=== PATIENT | female | born 1975 | race Caucasian/White ===

== ENCOUNTER 2017-05-06 06:46 | Emergency (ER) | payer BC ==
[2017-05-06] MEDS ORDERED: hydrOXYzine HCl 50 MG/ML SDV IM ONE (07:30)
[2017-05-06] MEDS ORDERED: Ketorolac 60 MG/2 ML SDV IM ONE (07:33)
--- NOTE | 2017-05-06 07:42 | EDM.PDOC ---
ED HPI GENERAL MEDICAL PROBLEM - General Chief Complaint: Headache Stated Complaint: MIGRAINE Time Seen by Provider: 05/06/17 06:53 Source of Information: Reports: Patient, Family History Limitations: Reports: No Limitations - History of Present Illness INITIAL COMMENTS - FREE TEXT/NARRATIVE: 42 y.o.w.f with h/o migraine, came to the ed due to N/V and pain at her r temp area. She has photophobia as well. Pt takes Metformin but has no DM. She has hypoglycemia, "Metformin stabilizes her blood sugar". Pt requested IM meds only , no I.V, no PO meds. No Trauma, not the worst H/A ever but one of the worst. No other acute medical issues. Onset Date: 05/06/17 Onset Time: 03:00 Duration: Hour(s):, Constant Location: Reports: Head Quality: Reports: Ache Severity: Moderate Improves with: Reports: Medication, Rest Worsens with: Reports: Movement Context: Reports: Activity, Other (H/O migraine H/A) R sided headache Pain Score (Numeric/FACES): 10 - Related Data Allergies Allergy/AdvReac Type Severity Reaction Status Date / Time No Known Allergies Allergy Verified 05/06/17 07:07 Home Meds: Home Meds Escitalopram [Lexapro] 20 mg PO DAILY 02/28/15 [History] Levothyroxine [Synthroid] 75 mcg PO DAILY 02/28/15 [History] Multivitamin [Multi-Vitamin Daily] 1 tab PO DAILY 02/28/15 [History] Topiramate 100 mg PO BID 02/28/15 [History] metFORMIN [Glucophage] 500 mg PO BIDMEALS 02/28/15 [History] Ondansetron [Zofran Odt] 8 mg PO Q6H PRN #10 tab.rapdis 05/24/16 [Rx] Butalb/Acetaminophen/Caffeine [Guxamq-Jqfzdtlx-Lufw 50-325-40] 1 tab Q4H PRN [History] ClonazePAM [KlonoPIN] 0.5 mg TID PRN 05/06/17 [History] Estrogens, Conjugated [Premarin] 0.625 mg DAILY 05/06/17 [History] Rizatriptan Benzoate [Rizatriptan] 10 mg ASDIRECTED PRN MDD 3 05/06/17 [History] Venlafaxine HCl [Venlafaxine ER] 150 mg DAILY 05/06/17 [History] Past Medical History HEENT History: Reports: Impaired Vision 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 Hematologic History: Reports: Other (See Below) Other Hematologic History: post-op hemorrhage - Past Surgical History HEENT Surgical History: Reports: Oral Surgery GI Surgical History: Reports: Appendectomy, Bariatric Procedure, Cholecystectomy , Hernia Repair/Other Female Surgical History: Reports: Hysterectomy, Oophorectomy, Salpingo- Oophorectomy Social & Family History - Family History Family Medical History: Noncontributory - Tobacco Use Smoking Status *Q: Former Smoker Years of Tobacco use: 10 Used Tobacco, but Quit: Yes Month Tobacco Last Used: 2001 - Caffeine Use Caffeine Use: Reports: Coffee - Recreational Drug Use Recreational Drug Use: No ED ROS GENERAL - Review of Systems Review Of Systems: See Below Constitutional: Reports: No Symptoms HEENT: Reports: No Symptoms Respiratory: Reports: No Symptoms Cardiovascular: Reports: No Symptoms Endocrine: Reports: No Symptoms GI/Abdominal: Reports: Nausea : Reports: No Symptoms Musculoskeletal: Reports: No Symptoms Skin: Reports: No Symptoms Neurological: Reports: Headache Psychiatric: Reports: No Symptoms Hematologic/Lymphatic: Reports: No Symptoms Immunologic: Reports: No Symptoms - Physical Exam Exam: See Below Exam Limited By: No Limitations General Appearance: Alert, WD/WN, Mild Distress Eye Exam: Bilateral Eye: Normal Inspection Ears: Normal External Exam Nose: Normal Inspection, Normal Mucosa Throat/Mouth: Normal Inspection, Normal Lips Head Exam: Atraumatic, Normocephalic Neck: Normal Inspection, Supple, Non-Tender, Full Range of Motion Respiratory/Chest: No Respiratory Distress Cardiovascular: Normal Peripheral Pulses, Regular Rate, Rhythm, No Edema GI/Abdominal: Normal Bowel Sounds, Soft, Non-Tender (Female) Exam: Deferred Rectal (Female) Exam: Deferred Neuro Exam (Abbreviated): Alert, Oriented, CN II-XII Intact, Normal Cognition Back Exam: Normal Inspection, Full Range of Motion Extremities: Normal Inspection, Normal Range of Motion Psychiatric: Normal Affect, Normal Mood Skin Exam: Warm, Dry, Intact, Normal Color Course - Vital Signs Text/Narrative:: 42 y.o.w.f with h/o migraine, came to the ed deu to N/V and pain at her r temp area. She has photophobia as well. Pt takes Metformin but has no DM. She has hypoglycemia, "Metformin stabilizes her blood sugar". Pt requested IM meds only , no I.V, no PO meds. No Trauma, not the worst H/A ever but one of the worst. No other acute medical issues. PE: WNWD WF with Migraine with photophobia Impression:Migraine with photophobia Tx: Toradol, Vistaril. Pt refused imitrex initially, later on agreed to get it injected for migraine headache. Reexam: Improved, requested to be discharged Plan: D/C with instructions Last Recorded V/S: Last Vital Signs Temp 36.8 C 05/06/17 09:20 Pulse 99 05/06/17 09:20 Resp 18 05/06/17 09:20 BP 136/85 05/06/17 09:20 Pulse Ox 100 05/06/17 09:20 - Orders/Labs/Meds Meds: Medications Discontinued Medications Generic Name Dose Route Start Last Admin Trade Name Freq PRN Reason Stop Dose Admin Hydroxyzine HCl 50 mg 05/06/17 07:30 05/06/17 07:42 Vistaril IM 05/06/17 07:31 50 mg ONETIME ONE Administration Ketorolac Tromethamine 60 mg 05/06/17 07:33 05/06/17 07:39 Toradol IM 05/06/17 07:34 60 mg ONETIME ONE Administration Sumatriptan Succinate 6 mg 05/06/17 08:31 05/06/17 08:38 Imitrex SUBCUT 05/06/17 08:32 6 mg ONETIME ONE Administration Departure - Departure Time of Disposition: :17 Disposition: Home, Self-Care 01 Condition: Good Clinical Impression: Migraine Qualifiers: Migraine type: without aura Status migrainosus presence: without status migrainosus Intractability: not intractable Qualified Code(s): G43.009 - Migraine without aura, not intractable, without status migrainosus - Discharge Information Instructions: Migraine Headache, [id number] Referrals: Gifty Bowden G[employer] INSPECTOR [Primary Care Provider] - Forms: ED Department Discharge Additional Instructions: Please cont your meds, f/u, come back if your symptoms get worse acutely
[2017-05-06] MEDS ORDERED: SUMAtriptan 6 MG/0.5 ML SDV SUBCUT ONE (08:31)
[2017-05-06 09:27] VITALS: BP 136/85
== END 2017-05-06 09:20 | disposition home or self-care (01) ==
LOC: FB.ED 06:46
DX: G43.009 Migraine without aura, not intractable, without status migrainosus (principal); K21.9 Gastro-esophageal reflux disease without esophagitis; F41.9 Anxiety disorder, unspecified; F32.9 Major depressive disorder, single episode, unspecified; E03.9 Hypothyroidism, unspecified; Z90.89 Acquired absence of other organs; Z98.84 Bariatric surgery status; Z90.49 Acquired absence of other specified parts of digestive tract; Z90.710 Acquired absence of both cervix and uterus; Z79.84 Long term (current) use of oral hypoglycemic drugs; Z79.899 Other long term (current) drug therapy; Z87.891 Personal history of nicotine dependence
CPT/HCPCS: 96372; 99283; J1885; J3030; J3410

== ENCOUNTER 2017-07-29 22:49 | Inpatient (IN) | payer BC ==
[2017-07-29] MEDS ORDERED: Sodium Chloride 0.9% 1,000 ML IV ONE (22:51)
[2017-07-29] MEDS ORDERED: Thiamine 100 MG in Sodium Chloride 0.9% 100 ML IV STA (22:54)
--- NOTE | 2017-07-30 00:18 | EDM.PDOCBH ---
ED HPI GENERAL MEDICAL PROBLEM - General Chief Complaint: Drug or Alcohol Abuse Stated Complaint: OD Time Seen by Provider: 07/30/17 00:17 Source of Information: Reports: Patient, EMS, Family (SO) History Limitations: Reports: Altered Mental Status - History of Present Illness INITIAL COMMENTS - FREE TEXT/NARRATIVE: 42 y.o.w.sushant. came be EMS to the ed after she was found lethargic by her SO last a t about 1 pm> She told him she took 50..... Pills? and fell a sleep right away. She was drinking socially with friends in the past 2 days. Pt does not drin ETOH every day. Pt has a H/O depression and takes meds for that. Pt looked for empty bottles at home and did not find any. On arrival. pt had pinpoint pupils, reactive to light and acc. No trauma. Pt take Metformin as well. However , SO is not sure if she has DM. SO stated, pt is depressed but never a suicidal attempt. 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 No N/V/D or any other acute medical issues. At this time, it is [place] [address] Pulse 62 Temp 35.9 RR 15 Pulse ox 98% on RA Onset Date: 07/29/17 Onset Time: 09:45 Duration: Hour(s):, Getting Worse Location: Reports: Generalized Severity: Moderate Context: Reports: Other (fell suddenly asleep, Took pills ) - Related Data Allergies Allergy/AdvReac Type Severity Reaction Status Date / Time No Known Allergies Allergy Verified 07/30/17 00:32 Home Meds: Home Meds Escitalopram [Lexapro] 20 mg PO DAILY 02/28/15 [History] Levothyroxine [Synthroid] 75 mcg PO DAILY 02/28/15 [History] Multivitamin [Multi-Vitamin Daily] 1 tab PO DAILY 02/28/15 [History] Topiramate 100 mg PO BID 02/28/15 [History] metFORMIN [Glucophage] 500 mg PO BIDMEALS 02/28/15 [History] Ondansetron [Zofran Odt] 8 mg PO Q6H PRN #10 tab.rapdis 05/24/16 [Rx] Butalb/Acetaminophen/Caffeine [Ullzgf-Jofqvwfd-Royp 50-325-40] 1 tab Q4H PRN [History] ClonazePAM [KlonoPIN] 0.5 mg TID PRN 05/06/17 [History] Estrogens, Conjugated [Premarin] 0.625 mg DAILY 05/06/17 [History] Rizatriptan Benzoate [Rizatriptan] 10 mg ASDIRECTED PRN MDD 3 05/06/17 [History] Venlafaxine HCl [Venlafaxine ER] 150 mg DAILY 05/06/17 [History] Past Medical History HEENT History: Reports: Impaired Vision 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 Hematologic History: Reports: Other (See Below) Other Hematologic History: post-op hemorrhage - Infectious Disease History Infectious Disease History: Reports: Chicken Pox - Past Surgical History HEENT Surgical History: Reports: Oral Surgery GI Surgical History: Reports: Appendectomy, Bariatric Procedure, Cholecystectomy , Hernia Repair/Other Female Surgical History: Reports: Hysterectomy, Oophorectomy, Salpingo- Oophorectomy Social & Family History - Family History Family Medical History: Noncontributory - Tobacco Use Smoking Status *Q: Former Smoker Years of Tobacco use: 10 Used Tobacco, but Quit: Yes Month Tobacco Last Used: 2001 - Caffeine Use Caffeine Use: Reports: Coffee - Recreational Drug Use Recreational Drug Use: No ED ROS GENERAL - Review of Systems Review Of Systems: Unable To Obtain ED EXAM, BEHAVIORAL HEALTH - Physical Exam Exam: See Below Exam Limited By: Altered Mental Status General Appearance: Lethargic Eye Exam: Bilateral Eye: Abnormal Pupil (pinpoint), Normal Fundi Ears: Normal External Exam Nose: Normal Inspection Throat/Mouth: Normal Inspection Head: Atraumatic, Normocephalic Neck: Normal Inspection, Supple, Non-Tender, Full Range of Motion Respiratory/Chest: No Respiratory Distress, Lungs Clear, Normal Breath Sounds, No Accessory Muscle Use, Chest Non-Tender Cardiovascular: Normal Peripheral Pulses, Regular Rate, Rhythm, No Edema, No Gallop, No JVD, No Murmur, No Rub GI/Abdominal: Normal Bowel Sounds, Soft, Non-Tender, No Organomegaly, No Distention, No Abnormal Bruit (Female) Exam: Deferred Rectal (Female) Exam: Deferred Back Exam: Normal Inspection Extremities: Normal Inspection, Normal Range of Motion, Non-Tender, No Pedal Edema, Normal Capillary Refill Neurological: Inattentive, Opens Eyes to Commands, Slow Response to Commands Psychiatric: Depressed Mood Skin Exam: Warm, Dry, Intact, Normal color, No rash EKG INTERPRETATION EKG Date: 07/30/17 Time: 01:55 Rhythm: NSR Rate (Beats/Min): 63 [place]: Normal P-Wave: Present QRS: Normal ST-T: Normal QT: Normal Comparison: NA - No Prior EKG COURSE, BEHAVIORAL HEALTH COMP - Course Vital Signs: Last Vital Signs Temp 35.1 C L 07/30/17 00:48 Pulse 70 07/30/17 03:50 Resp 20 07/30/17 03:50 BP 123/78 07/30/17 03:50 Pulse Ox 99 07/30/17 03:50 42 y.o.w.f. came be EMS to the ed after she was found lethargic by her SO last a t about 1 pm> She told him she took 50..... Pills? and fell a sleep right away. She was drinking socially with friends in the past 2 days. Pt does not drin ETOH every day. Pt has a H/O depression and takes meds for that. Pt looked for empty bottles at home and did not find any. On arrival. pt had pinpoint pupils, reactive to light and acc. No trauma. Pt take Metformin as well. However , SO is not sure if she has DM. SO stated, pt is depressed but never a suicidal attempt. 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 No N/V/D or any other acute medical issues. At this time, it is not [place] [address] Pulse 62 Temp 35.9 RR 15 Pulse ox 98% on RA Pt may have OD'd om Metfromin PE: Lethargic Imaging: not indicated Labs: UDS neg. ETOH 0.03 Acetaminophen level was 69. ASA level was 1.7, Lactic acid was 0.8 WBC was 6.4 HGB was 10.6 and BUN was 22 Cr. was 0.9 were nl. ABG showed a pH of 7.38 pCO2 was 33 HCO2 19 pO2 98 BE -5.1 Impression: Depression/suicidal attempt, hypoglycemia (poss Metfromin OD), partially compensated rep. acidosis Tx: NS, D5 1/2 LR, 1.35 am consultation: Poison Control: Repeat Lactic acid and acetaminophen level in 4 hours after the last draw (00.05 am) admit for OBS for 24 Reexam: Improved Plan: admit to ICU Orders, Labs, Meds: Active Orders 24 hr Category Date Time Status Insert Urinary Catheter [OM.PC] Q24H Care 07/29/17 23:46 Ordered Dextrose 5%-0.45% NaCl [Dextrose 5%-1/2 NS] 1,000 ml Med 07/30/17 01:00 Active IV ASDIRECTED Sodium Chloride 0.9% [Saline Flush] Med 07/30/17 00:39 Active 10 ml FLUSH ASDIRECTED PRN Saline Lock Insert [OM.PC] Routine Oth 07/30/17 00:39 Ordered Medication Orders Dextrose/Sodium Chloride (Dextrose 5%-1/2 Ns) 1,000 mls @ 125 mls/hr IV ASDIRECTED YARIEL Last Admin: 07/30/17 00:59 Dose: 125 mls/hr Sodium Chloride (Saline Flush) 10 ml FLUSH ASDIRECTED PRN PRN Reason: Keep Vein Open Laboratory Tests 07/29/17 07/29/17 07/29/17 Range/Units 23:05 23:05 23:05 WBC 6.6 (4.5-12.0) X10-3/uL RBC 3.91 (3.23-5.20) x10(6)uL Hgb 10.7 L (11.5-15.5) g/dL Hct 32.7 (30.0-51.3) % MCV 83.6 (80-96) fL MCH 27.2 L (27.7-33.6) pg MCHC 32.6 (32.2-35.4) g/dL RDW 12.7 (11.5-15.5) % Plt Count 283 (125-369) X10(3)uL MPV 7.8 (7.4-10.4) fL Neut % (Auto) 54.3 (46-82) % Lymph % (Auto) 30.4 (13-37) % Falls % (Auto) 8.4 (4-12) % Eos % (Auto) 6 H (1.0-5.0) % Baso % (Auto) 1 (0-2) % Neut # (Auto) 3.5 (1.6-8.3) # Lymph # (Auto) 2.0 (0.6-5.0) # Falls # (Auto) 0.6 (0.0-1.3) # Eos # (Auto) 0.4 (0.0-0.8) # Baso # (Auto) 0.1 (0.0-0.2) # ABG pH (7.35-7.45) ABG pCO2 (35-45) mmHg ABG pO2 (83-108) mmHg ABG HCO3 (22-26) mmol/L ABG O2 Saturation (96-97) % ABG Base Excess (-2-2) Jaren Test O2 Delivery Device Sodium 142 (135-145) mmol/L Potassium 3.7 (3.5-5.3) mmol/L Chloride 108 (100-110) mmol/L Carbon Dioxide 25 (21-32) mmol/L BUN 22 H (7-18) mg/dL Creatinine 0.9 (0.55-1.02) mg/dL Est Cr Clr Drug Dosing TNP Estimated GFR (MDRD) > 60 (>60) BUN/Creatinine Ratio 24.4 H (9-20) Glucose 78 L (80-116) mg/dL Lactic Acid (0.4-2.2) mmol/L Calcium 8.6 (8.6-10.2) mg/dL Urine Color (YELLOW) Urine Appearance (CLEAR) Urine pH (5.0-6.5) Ur Specific [place] (1.010-1.025) Urine Protein (NEGATIVE) mg/dL Urine Glucose (UA) (NEGATIVE) mg/dL Urine Ketones (NEGATIVE) mg/dL Urine Occult Blood (NEGATIVE) Urine Nitrite (NEGATIVE) Urine Bilirubin (NEGATIVE) Urine Urobilinogen (NEGATIVE) mg/dL Ur Leukocyte Esterase (NEGATIVE) Urine RBC (0) Urine WBC (0) Ur Squamous Epith Cells (NS,R,O) Urine Bacteria (NS) Urine Mucus (NS) Salicylates (2.8-20.0) mg/dL Urine Opiates Screen (NEGATIVE) Ur Oxycodone Screen (NEGATIVE) Ur Propoxyphene Screen (NEGATIVE) Acetaminophen (10-30) ug/mL Ur Barbituates Screen (NEGATIVE) Ur Tricyclics Screen (NEGATIVE) Ur Phencyclidine Scrn (NEGATIVE) Ur Amphetamine Screen (NEGATIVE) Urine MDMA Screen (NEGATIVE) U Benzodiazepines Scrn (NEGATIVE) U Cocaine Metab Screen (NEGATIVE) U Marijuana (THC) Screen (NEGATIVE) Ethyl Alcohol < 0.03 (<0.03) % 07/29/17 07/29/17 07/30/17 Range/Units 23:53 23:53 00:05 WBC (4.5-12.0) X10-3/uL RBC (3.23-5.20) x10(6)uL Hgb (11.5-15.5) g/dL Hct (30.0-51.3) % MCV (80-96) fL MCH (27.7-33.6) pg MCHC (32.2-35.4) g/dL RDW (11.5-15.5) % Plt Count (125-369) X10(3)uL MPV (7.4-10.4) fL Neut % (Auto) (46-82) % Lymph % (Auto) (13-37) % Falls % (Auto) (4-12) % Eos % (Auto) (1.0-5.0) % Baso % (Auto) (0-2) % Neut # (Auto) (1.6-8.3) # Lymph # (Auto) (0.6-5.0) # Falls # (Auto) (0.0-1.3) # Eos # (Auto) (0.0-0.8) # Baso # (Auto) (0.0-0.2) # ABG pH (7.35-7.45) ABG pCO2 (35-45) mmHg ABG pO2 (83-108) mmHg ABG HCO3 (22-26) mmol/L ABG O2 Saturation (96-97) % ABG Base Excess (-2-2) Jaren Test O2 Delivery Device Sodium (135-145) mmol/L Potassium (3.5-5.3) mmol/L Chloride (100-110) mmol/L Carbon Dioxide (21-32) mmol/L BUN (7-18) mg/dL Creatinine (0.55-1.02) mg/dL Est Cr Clr Drug Dosing Estimated GFR (MDRD) (>60) BUN/Creatinine Ratio (9-20) Glucose (80-116) mg/dL Lactic Acid (0.4-2.2) mmol/L Calcium (8.6-10.2) mg/dL Urine Color Yellow (YELLOW) Urine Appearance Cloudy (CLEAR) Urine pH 5.0 (5.0-6.5) Ur Specific [place] 1.020 (1.010-1.025) Urine Protein Negative (NEGATIVE) mg/dL Urine Glucose (UA) Normal (NEGATIVE) mg/dL Urine Ketones Negative (NEGATIVE) mg/dL Urine Occult Blood Large H (NEGATIVE) Urine Nitrite Negative (NEGATIVE) Urine Bilirubin Negative (NEGATIVE) Urine Urobilinogen Normal (NEGATIVE) mg/dL Ur Leukocyte Esterase Negative (NEGATIVE) Urine RBC 5-10 (0) Urine WBC 0-5 (0) Ur Squamous Epith Cells Many H (NS,R,O) Urine Bacteria Many H (NS) Urine Mucus Many H (NS) Salicylates 1.7 L (2.8-20.0) mg/dL Urine Opiates Screen Negative (NEGATIVE) Ur Oxycodone Screen Negative (NEGATIVE) Ur Propoxyphene Screen Negative (NEGATIVE) Acetaminophen 68 H* (10-30) ug/mL Ur Barbituates Screen Negative (NEGATIVE) Ur Tricyclics Screen Negative (NEGATIVE) Ur Phencyclidine Scrn Negative (NEGATIVE) Ur Amphetamine Screen Negative (NEGATIVE) Urine MDMA Screen Negative (NEGATIVE) U Benzodiazepines Scrn Negative (NEGATIVE) U Cocaine Metab Screen Negative (NEGATIVE) U Marijuana (THC) Screen Negative (NEGATIVE) Ethyl Alcohol (<0.03) % 07/30/17 07/30/17 Range/Units 01:05 01:10 WBC (4.5-12.0) X10-3/uL RBC (3.23-5.20) x10(6)uL Hgb (11.5-15.5) g/dL Hct (30.0-51.3) % MCV (80-96) fL MCH (27.7-33.6) pg MCHC (32.2-35.4) g/dL RDW (11.5-15.5) % Plt Count (125-369) X10(3)uL MPV (7.4-10.4) fL Neut % (Auto) (46-82) % Lymph % (Auto) (13-37) % Falls % (Auto) (4-12) % Eos % (Auto) (1.0-5.0) % Baso % (Auto) (0-2) % Neut # (Auto) (1.6-8.3) # Lymph # (Auto) (0.6-5.0) # Falls # (Auto) (0.0-1.3) # Eos # (Auto) (0.0-0.8) # Baso # (Auto) (0.0-0.2) # ABG pH 7.38 (7.35-7.45) ABG pCO2 33 L (35-45) mmHg ABG pO2 99 (83-108) mmHg ABG HCO3 19 L (22-26) mmol/L ABG O2 Saturation 98 H (96-97) % ABG Base Excess -5.1 L (-2-2) Jaren Test Passed O2 Delivery Device Room air Sodium (135-145) mmol/L Potassium (3.5-5.3) mmol/L Chloride (100-110) mmol/L Carbon Dioxide (21-32) mmol/L BUN (7-18) mg/dL Creatinine (0.55-1.02) mg/dL Est Cr Clr Drug Dosing Estimated GFR (MDRD) (>60) BUN/Creatinine Ratio (9-20) Glucose (80-116) mg/dL Lactic Acid 0.8 (0.4-2.2) mmol/L Calcium (8.6-10.2) mg/dL Urine Color (YELLOW) Urine Appearance (CLEAR) Urine pH (5.0-6.5) Ur Specific [place] (1.010-1.025) Urine Protein (NEGATIVE) mg/dL Urine Glucose (UA) (NEGATIVE) mg/dL Urine Ketones (NEGATIVE) mg/dL Urine Occult Blood (NEGATIVE) Urine Nitrite (NEGATIVE) Urine Bilirubin (NEGATIVE) Urine Urobilinogen (NEGATIVE) mg/dL Ur Leukocyte Esterase (NEGATIVE) Urine RBC (0) Urine WBC (0) Ur Squamous Epith Cells (NS,R,O) Urine Bacteria (NS) Urine Mucus (NS) Salicylates (2.8-20.0) mg/dL Urine Opiates Screen (NEGATIVE) Ur Oxycodone Screen (NEGATIVE) Ur Propoxyphene Screen (NEGATIVE) Acetaminophen (10-30) ug/mL Ur Barbituates Screen (NEGATIVE) Ur Tricyclics Screen (NEGATIVE) Ur Phencyclidine Scrn (NEGATIVE) Ur Amphetamine Screen (NEGATIVE) Urine MDMA Screen (NEGATIVE) U Benzodiazepines Scrn (NEGATIVE) U Cocaine Metab Screen (NEGATIVE) U Marijuana (THC) Screen (NEGATIVE) Ethyl Alcohol (<0.03) % Medications Generic Name Dose Route Start Last Admin Trade Name Freq PRN Reason Stop Dose Admin Dextrose/Sodium Chloride 1,000 mls @ 125 mls/hr 07/30/17 01:00 07/30/17 00:59 Dextrose 5%-1/2 Ns IV 125 mls/hr ASDIRECTED YARIEL Administration Sodium Chloride 10 ml 07/30/17 00:39 Saline Flush FLUSH ASDIRECTED PRN Keep Vein Open Discontinued Medications Generic Name Dose Route Start Last Admin Trade Name Freq PRN Reason Stop Dose Admin Dextrose/Water 25 ml 07/30/17 00:38 07/30/17 00:41 Dextrose 50% In Water IVPUSH 07/30/17 00:39 25 ml ONETIME ONE Administration Sodium Chloride 1,000 mls @ 999 mls/hr 07/29/17 22:51 07/29/17 23:00 Normal Saline IV 07/29/17 23:51 999 mls/hr .BOLUS ONE Administration Thiamine HCl 100 mg/ Sodium 101 mls @ 202 mls/hr 07/29/17 22:54 07/29/17 23: 26 Chloride IV 07/29/17 22:55 202 mls/hr ONETIME STA Administration Departure - Departure Time of Disposition: 01:00 Disposition: Admitted As Inpatient 64 Condition: Fair Clinical Impression: Mental status change Qualifiers: Altered mental status type: somnolence Qualified Code(s): R40.0 - Somnolence - Discharge Information - My Orders Last 24 Hours: My Active Orders 07/29/17 23:46 Insert Urinary Catheter [OM.PC] Q24H 07/30/17 00:39 Sodium Chloride 0.9% [Saline Flush] 10 ml FLUSH ASDIRECTED PRN Saline Lock Insert [OM.PC] Routine 07/30/17 01:00 Dextrose 5%-0.45% NaCl [Dextrose 5%-1/2 NS] 1,000 ml IV ASDIRECTED - Assessment/Plan Last 24 Hours: My Active Orders 07/29/17 23:46 Insert Urinary Catheter [OM.PC] Q24H 07/30/17 00:39 Sodium Chloride 0.9% [Saline Flush] 10 ml FLUSH ASDIRECTED PRN Saline Lock Insert [OM.PC] Routine 07/30/17 01:00 Dextrose 5%-0.45% NaCl [Dextrose 5%-1/2 NS] 1,000 ml IV ASDIRECTED
[2017-07-30] MEDS ORDERED: 50% Dextrose in Water 50 ML Syringe IVPUSH ONE (00:38)
[2017-07-30] MEDS: Dextrose 5%-0.45% NaCl 1,000 ML IV SCH ×3 (00:59→17:17)
--- NOTE | 2017-07-30 11:45 | CT ---
INDICATION: Unresponsive. No history of trauma. CT HEAD WITHOUT CONTRAST: Serial contiguous 2.5 and 5-mm sections were obtained through the brain without contrast, 07/30/2017. No comparison study was available. Total Exam DLP = 949.36 mGy-cm. A small retention cyst is noted in the left maxillary antrum. Thickening of the linings of a few of the right-sided posterior ethmoidal air cells is noted. Paranasal sinuses were otherwise well aerated, as were the mastoid air cells. No definite cranial abnormality was identified. No shift of midline structures, ventricular abnormalities, or other abnormal areas of density were identified. There is some decreased density in the basal ganglia bilaterally, which may be on the basis of vascular structures. The possibility of lacunar infarcts is difficult to entirely exclude, however. Sigmoid sinuses are somewhat asymmetrical, the right being more prominent than the left. No bone erosion is suggested in that area. No bleeding site or hematoma was seen. IMPRESSION: 1. No definite acute intracranial abnormality. 2. Question the possibility of lacunar infarcts bilaterally at the posterior/ inferior basal ganglia. 3. If symptoms persist, MRI may be helpful for further evaluation. [id number]
--- NOTE | 2017-07-30 18:50 | HP ---
ADMISSION DATE: 07/30/2017 HISTORY OF PRESENT ILLNESS: Erin Boyle is a 42-year-old, female, who was admitted to [facility] to the ER. History is obtained at this time by her . She had a busy weekend, a couple nights of evenings out, Sunday night evening with her , Sunday evening with friends. She was late coming in after 2:00 a.m., both mornings. 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 There had been some discussion in the past of some suicidal ideation. She went to bed about 9 o'clock last evening, without complaints or concern, went to bed; after 10, she was unarousable, garbled speech, was difficult. There were some concerns about "taking 15 or 50 pills," unable to assist her to the hospital, was brought by ambulance for intervention and care. In the emergency room, she was found to be obtunded, unresponsive. Vital signs were stable, appropriate diagnostic studies were performed including urine drug screen, all negative except for moderately elevated Tylenol. Tylenol PM may have been in the discussion. MEDICATIONS: On admission include: 1. Fioricet p.r.n. headaches. 2. Clonazepam 0.5 mg t.i.d. 3. Escitalopram 20 mg one p.o. daily. 4. Premarin 0.625 one p.o. daily. 5. Levothyroxine 88 mcg one p.o. daily. 6. Metformin 500 mg b.i.d. 7. Multivitamin one daily, nutrition. 8. Zofran 8 mg q.6 hours p.r.n. nausea. 9. Rizatriptan 10 mg p.r.n. for headaches. 10.Topamax 100 mg b.i.d. 11.Effexor ER 150 one daily. ALLERGIES: No known allergies. PAST MEDICAL HISTORY: Significant for previous hysterectomy, oophorectomy, abdominal hernia, previous obesity surgery, and cholecystectomy by report. Chronic illnesses include anxiety, hypothyroidism, mood disorder, and migraines. No other operative procedures, hospitalizations, unusual childhood diseases, major injuries, or fractures. SOCIAL HISTORY: [place] resident. Lives with of 40, he is from [place]. 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 Three children, one daughter, two sons. Nonsmoker. No alcohol consumption. No illicit drug use. FAMILY HISTORY: Noncontributory. REVIEW OF SYSTEMS: Unable to obtain review of systems due to clinical presentation. OBJECTIVE: VITAL SIGNS: 36.4, 62, 143/80, 127/77, 14 is respiration, 99% on room air. GENERAL: Minimally responsive. VITAL SIGNS: Stable. No complicating issues. HEENT: Fundi benign. Pupils reactive, bright tympanic membranes, clear nasal discharge. Mouth and oropharynx clear. Good gag reflex. NECK: Benign. CHEST: Clear in all lung [place]. HEART: Regular without ectopy or murmur. ABDOMEN: Benign, well-healed surgical scars. PELVIC AND RECTAL: Deferred. EXTREMITIES: Well perfused. Decreased motor tone. LABORATORY STUDIES: CBC revealed a white count 6900, hemoglobin 10.7. Normal blood gases, 7.38 pH. Electrolytes satisfactory. Glucose 78. Urine unremarkable. ASSESSMENT: Unresponsive, obtunded, clinically stable, origin undetermined secondary diagnosis, and depression, anxiety, mood disorder, and suicidal consideration. PLAN: Staff had spoken to Poison Control, observation only. Close observation. Intervention and care. ADDENDUM: A CT was performed, no signs of intracranial abnormality, increasingly more responsive. She was asked to void and stool accordingly. Again spoke to Poison Control. Tylenol PM, Benadryl long acting fat-soluble, maybe a 24-hour window. Clonazepam may not be screened routinely on urine drug screen, further tests as appropriate. /[id number] /JONATHAN
[2017-07-31] MEDS: Dextrose 5%-0.45% NaCl 1,000 ML IV SCH (01:22)
[2017-07-31] MEDS: Sodium Chloride 0.9% 10 ML Syringe FLUSH PRN (11:30)
--- NOTE | 2017-07-31 15:45 | PN ---
DATE SEEN: 07/31/2017 SUBJECTIVE: Kaitlyn Boyle is a 42-year-old female, admitted on Sunday evening with a profound episode of obtundation and lethargy. Urine drug screen was negative. Medications under consideration, clonazepam or clonidine, often missed by Poison Control's observation on drug screen and, of course, may have been moderate to high doses of Benadryl. Making good progress. More awake and more alert. Up to void on the stool, a little bit of intake of fluids. No new outstanding laboratory studies. CT scan of the head was normal by report. OBJECTIVE: VITAL SIGNS: Stable and documented. CHEST: Clear. HEART: Regular. ABDOMEN: Benign. ASSESSMENT: Acute episode of marked decreased level of consciousness; complicated medications under consideration, clonazepam versus Benadryl, likely the Benadryl. PLAN: No other intervention and no antidotes in place. We will advance diet, close observation, discontinue fluids, teleconference with Psychiatry upcoming and planned. /[id number] JAYE/JONATHAN
[2017-07-31] MEDS: Ciprofloxacin 250 MG Tab PO SCH ×2 (18:58→20:16)
[2017-08-01] MEDS ORDERED: Ketorolac 30 MG/ML SDV IM ONE (01:30)
[2017-08-01] MEDS: Ciprofloxacin 250 MG Tab PO SCH ×2 (08:27→19:17)
[2017-08-01] MEDS ORDERED: Ketorolac 30 MG/ML SDV IM PRN (09:54)
[2017-08-01] MEDS: Ketorolac 30 MG/ML SDV IVPUSH PRN ×2 (10:23→17:51)
[2017-08-01] MEDS ORDERED: Levothyroxine 75 MCG Tab PO SCH (11:45)
[2017-08-01] MEDS ORDERED: Levothyroxine 88 MCG Tab PO SCH (11:45)
[2017-08-01] MEDS ORDERED: Venlafaxine 150 MG Cap.ER PO SCH (11:45)
--- NOTE | 2017-08-01 11:58 | PN ---
DATE SEEN: 08/01/2017 SUBJECTIVE: Erin Boyle is a 42-year-old female, admitted with apparent medication overdose planned. Exact circumstances unknown, please see the previous notes. A bit more wakeful, a bit more alert. Had an acute episode of pain over the left SI joint occurred tonight, further review no trauma or injury. Otherwise, has been well. Psychiatry phone teleconference visit planned today. Medications; reviewed and appropriate. In the past have included Effexor and clonazepam. We will reinstitute those medications today now that she is awake and alert. In a timely fashion. DISCHARGE PLAN: Later today, likely. /[id number] JAYE/JONATHAN
[2017-08-01] MEDS: Topiramate 50 MG Tab PO SCH ×2 (13:08→19:16)
[2017-08-01 16:55] VITALS: BP 150/83
[2017-08-01] MEDS: Sodium Chloride 0.9% 10 ML Syringe FLUSH PRN ×2 (17:51→17:54)
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
--- NOTE | 2017-08-02 03:12 | DISCH ---
DISCHARGE DATE: 08/01/2017 HOSPITAL COURSE: Erin Boyle is a 42-year-old female, admitted on Sunday evening with acute confusional state, lethargy, and obtunded state. Etiology uncertain, concerns about Klonopin and Benadryl. Physiologically stable. No complicating issues. Vital signs are stable. Laboratory studies are satisfactory. Blood alcohol was nil and only negligible in nature, drug screen returned no problematic, illicit, or prescription drugs. Talks with Poison Control suggested that Klonopin may often be a false negative. Treatment rather obtunded during her initial 2-day hospital stay, awake, arousable after void, limited intake. As hospital stay evolved, she became more alert, awake, and appropriate. Ambulatory skills were moderately limited on the day of discharge, by the time discharge was doing well. I spoke with the staff at [facility] in [place], after discussion with Dr. Harvey of Psychiatry for inpatient stay. The patient is in agreement to go voluntarily. No complicating issues. Urine culture revealed gram-negative jj, probably E coli, sensitivity pending. We will report that accordingly. We discharged her home on Cipro for an appropriate length of time. DISPOSITION: At the time of discharge, she is awake, alert, appropriate, and comfortable with the decision upcoming. To be transferred by family in a guarded position to [facility]. SURGICAL PROCEDURES: None. CONSULTATION: Dr. Harvey, Psychiatry. /[id number] /JONATHAN
== END 2017-08-01 19:30 | DRG 812 ==
LOC: FB.ED 22:49 → FB.ICU 07-30 01:53
PROVIDERS: ADMIT Family Medicine; ATTEND Family Medicine
DX: T50.902A Poisoning by unspecified drugs, medicaments and biological substances, intentional self-harm, initial encounter (principal); R41.0 Disorientation, unspecified; Y92.009 Unspecified place in unspecified non-institutional (private) residence as the place of occurrence of the external cause; R40.0 Somnolence; E87.2 Acidosis; E16.2 Hypoglycemia, unspecified; E03.9 Hypothyroidism, unspecified; F32.9 Major depressive disorder, single episode, unspecified; F41.9 Anxiety disorder, unspecified; G43.909 Migraine, unspecified, not intractable, without status migrainosus; Z98.84 Bariatric surgery status; Z87.891 Personal history of nicotine dependence; R82.79 Other abnormal findings on microbiological examination of urine
CPT/HCPCS: 36415; 36600; 70450; 80048; 80305; 81001; 82803; 82962; 83605; 85025; 87086; 87088; 87186; 93005; 96361; 96365; 96375; 99285; A9270-GY; G0425; G0480; J1885; J3411; J7030; J7040; J7050

== ENCOUNTER 2018-04-28 19:37 | Emergency (ER) | payer BC, OTHER ==
[2018-04-28] MEDS ORDERED: Sodium Chloride 0.9% 1,000 ML IV ONE (19:46)
[2018-04-28] MEDS ORDERED: Sodium Chloride 0.9% 10 ML Syringe FLUSH PRN (19:46)
--- NOTE | 2018-04-28 19:53 | EDM.PDOCBH ---
ED HPI GENERAL MEDICAL PROBLEM - General Chief Complaint: Drug or Alcohol Abuse Stated Complaint: OD Time Seen by Provider: 04/28/18 19:49 Source of Information: Reports: Patient, Family History Limitations: Reports: Altered Mental Status - History of Present Illness INITIAL COMMENTS - FREE TEXT/NARRATIVE: Admits to ingesting 20 Tylenol PMs @20 hours ago, patient verbalized to her friends that she ingested the medication in an attempt to harm herself. She does have a prior history of suicide attempt. Patient has been groggy all day, but more so in the last hour. Has been vomiting. Onset Date: 04/28/18 Onset Time: 00:00 Severity: Moderate - Related Data Allergies Allergy/AdvReac Type Severity Reaction Status Date / Time No Known Allergies Allergy Verified 07/30/17 00:32 Home Meds: Home Meds Levothyroxine [Synthroid] 75 mcg PO DAILY 02/28/15 [History] Topiramate 100 mg PO BID 02/28/15 [History] metFORMIN [Glucophage] 500 mg PO BIDMEALS 02/28/15 [History] Ondansetron [Zofran Odt] 8 mg PO Q6H PRN #10 tab.rapdis 05/24/16 [Rx] Butalb/Acetaminophen/Caffeine [Lemspr-Xmfhykmn-Gtsh 50-325-40] 1 tab Q4H PRN [History] ClonazePAM [KlonoPIN] 0.5 mg TID PRN 05/06/17 [History] Estrogens, Conjugated [Premarin] 0.625 mg DAILY 05/06/17 [History] Rizatriptan Benzoate [Rizatriptan] 10 mg ASDIRECTED PRN MDD 3 05/06/17 [History] Venlafaxine HCl [Venlafaxine ER] 150 mg DAILY 05/06/17 [History] Ciprofloxacin [Ciprofloxacin HCl] 250 mg PO BID tablet 08/01/17 [Rx] Past Medical History HEENT History: Reports: Impaired Vision Gastrointestinal History: Reports: GERD GUIDANCE CONSULTANT History: Reports: Dysfunctional Uterine Bleeding, , Spontaneous Musculoskeletal History: Reports: Fracture Other Musculoskeletal History: hx fx L ankle & foot Neurological History: Reports: Migraines Psychiatric History: Reports: Anxiety, Depression, Suicide Attempt, Other (See Below) (bulemia) Endocrine/Metabolic History: Reports: Hypothyroidism Other Endocrine/Metabolic History: Denies being diabetic, states is on Metformin for weight loss. Hematologic History: Reports: Other (See Below) Other Hematologic History: post-op hemorrhage - Infectious Disease History Infectious Disease History: Reports: Chicken Pox - Past Surgical History HEENT Surgical History: Reports: Oral Surgery GI Surgical History: Reports: Appendectomy, Bariatric Procedure, Cholecystectomy , Hernia Repair/Other Female Surgical History: Reports: Hysterectomy, Oophorectomy, Salpingo- Oophorectomy Social & Family History - Family History Family Medical History: Noncontributory - Caffeine Use Caffeine Use: Reports: Coffee, Soda - Alcohol Use Alcohol Use History: Yes Alcohol Use in Last Twelve Months: Yes Alcohol Use Comment: Consumed alcohol last night ED ROS GENERAL - Review of Systems Review Of Systems: Unable To Obtain ED EXAM, BEHAVIORAL HEALTH - Physical Exam Exam: See Below Exam Limited By: Altered Mental Status General Appearance: Alert, Lethargic Eye Exam: Bilateral Eye: EOMI, PERRL Ears: Normal External Exam Nose: Normal Inspection Throat/Mouth: No Airway Compromise Head: Atraumatic, Normocephalic Neck: Supple Respiratory/Chest: No Respiratory Distress, Lungs Clear, Normal Breath Sounds Cardiovascular: Regular Rate, Rhythm, No Gallop, No Murmur GI/Abdominal: Soft, Non-Tender Extremities: Normal Range of Motion Neurological: Disoriented to Person, Opens Eyes to Commands, Slow Response to Commands, Other (GCS 12) Psychiatric: Flat Affect, Poor Eye Contact, Suicidal Thoughts Skin Exam: Warm, Dry, Intact EKG INTERPRETATION EKG Date: 04/28/18 Time: 20:04 Rhythm: NSR Rate (Beats/Min): 83 [place]: Normal P-Wave: Present QRS: Normal (92) ST-T: Normal QT: Normal (477) COURSE, BEHAVIORAL HEALTH COMP - Course Vital Signs: Last Vital Signs Temp 36.6 C 04/28/18 19:37 Pulse Resp 18 04/28/18 20:51 BP 174/93 H 04/28/18 20:51 Pulse Ox 100 04/28/18 20:51 Orders, Labs, Meds: Active Orders 24 hr Category Date Time Status EKG Documentation Completion [RC] ASDIRECTED Care 04/28/18 19:44 Active Martinez Catheter Insertion [Insert Urinary Catheter] [OM. Care 04/28/18 19:45 Ordered PC] Q24H Urinary Catheter Assessment [RC] QSHIFT Care 04/28/18 19:44 Active Chest 1V Frontal [CR] Stat Exams 04/28/18 19:44 Taken Head wo Cont [CT] Stat Exams 04/28/18 19:45 Taken Acetylcysteine [Acetadote 20%] 10,200 mg Med 04/28/18 22:00 Active Sodium Chloride 0.45% 200 ml IV ONETIME Sodium Chloride 0.9% [Normal Saline] 1,000 ml Med 04/28/18 21:00 Active IV ASDIRECTED Sodium Chloride 0.9% [Saline Flush] Med 04/28/18 19:46 Active 10 ml FLUSH ASDIRECTED PRN Saline Lock Insert [OM.PC] Routine Oth 04/28/18 19:46 Ordered EKG 12 Lead [EK] Stat Ther 04/28/18 19:44 Ordered Medication Orders Sodium Chloride (Normal Saline) 1,000 mls @ 200 mls/hr IV ASDIRECTED YARIEL Last Admin: 04/28/18 20:56 Dose: 200 mls/hr Acetylcysteine 10,200 mg/ (Sodium Chloride) 251 mls @ 251 mls/hr IV ONETIME ONE Stop: 04/28/18 22:59 Sodium Chloride (Saline Flush) 10 ml FLUSH ASDIRECTED PRN PRN Reason: Keep Vein Open Last Admin: 04/28/18 19:55 Dose: 10 ml Laboratory Tests 04/28/18 04/28/18 04/28/18 Range/Units 19:55 19:55 19:55 WBC 7.0 (4.5-12.0) X10-3/uL RBC 4.61 (3.23-5.20) x10(6)uL Hgb 11.4 L (11.5-15.5) g/dL Hct 35.5 (30.0-51.3) % MCV 77.0 L (80-96) fL MCH 24.8 L (27.7-33.6) pg MCHC 32.1 L (32.2-35.4) g/dL RDW 14.6 (11.5-15.5) % Plt Count 364 (125-369) X10(3)uL MPV 8.1 (7.4-10.4) fL Neut % (Auto) 65.9 (46-82) % Lymph % (Auto) 25.3 (13-37) % [place] % (Auto) 8.3 (4-12) % Eos % (Auto) 0 L (1.0-5.0) % Baso % (Auto) 0 (0-2) % Neut # (Auto) 4.6 (1.6-8.3) # Lymph # (Auto) 1.8 (0.6-5.0) # [place] # (Auto) 0.6 (0.0-1.3) # Eos # (Auto) 0.0 (0.0-0.8) # Baso # (Auto) 0.0 (0.0-0.2) # PT 10.3 (8.7-11.1) INR 1.06 (0.89-1.13) Sodium 138 (135-145) mmol/L Potassium 3.5 (3.5-5.3) mmol/L Chloride 102 D (100-110) mmol/L Carbon Dioxide 25 (21-32) mmol/L BUN 18 (7-18) mg/dL Creatinine 1.0 (0.55-1.02) mg/dL Est Cr Clr Drug Dosing TNP Estimated GFR (MDRD) 60 (>60) BUN/Creatinine Ratio 18.0 (9-20) Glucose 111 (80-116) mg/dL Calcium 9.1 (8.6-10.2) mg/dL Total Bilirubin 0.4 (0.1-1.3) mg/dL AST 26 H (5-25) IU/L ALT 29 (12-36) U/L Alkaline Phosphatase 71 (56-112) IU/L Total Protein 7.1 (6.0-8.0) g/dL Albumin 3.8 (3.5-5.2) g/dL Globulin 3.3 g/dL Albumin/Globulin Ratio 1.2 TSH, Ultra Sensitive (0.36-3.74) IU/mL Urine Color (YELLOW) Urine Appearance (CLEAR) Urine pH (5.0-6.5) Ur Specific [place] (1.010-1.025) Urine Protein (NEGATIVE) mg/dL Urine Glucose (UA) (NEGATIVE) mg/dL Urine Ketones (NEGATIVE) mg/dL Urine Occult Blood (NEGATIVE) Urine Nitrite (NEGATIVE) Urine Bilirubin (NEGATIVE) Urine Urobilinogen (NEGATIVE) mg/dL Ur Leukocyte Esterase (NEGATIVE) Urine RBC (0) Urine WBC (0) Ur Squamous Epith Cells (NS,R,O) Urine Bacteria (NS) Urine HCG, Qual (NEGATIVE) Salicylates (2.8-20.0) mg/dL Urine Opiates Screen (NEGATIVE) Ur Oxycodone Screen (NEGATIVE) Ur Propoxyphene Screen (NEGATIVE) Acetaminophen (10-30) ug/mL Ur Barbituates Screen (NEGATIVE) Ur Tricyclics Screen (NEGATIVE) Ur Phencyclidine Scrn (NEGATIVE) Ur Amphetamine Screen (NEGATIVE) Urine MDMA Screen (NEGATIVE) U Benzodiazepines Scrn (NEGATIVE) U Cocaine Metab Screen (NEGATIVE) U Marijuana (THC) Screen (NEGATIVE) Ethyl Alcohol (<0.03) % 04/28/18 04/28/18 04/28/18 Range/Units 19:55 19:55 19:55 WBC (4.5-12.0) X10-3/uL RBC (3.23-5.20) x10(6)uL Hgb (11.5-15.5) g/dL Hct (30.0-51.3) % MCV (80-96) fL MCH (27.7-33.6) pg MCHC (32.2-35.4) g/dL RDW (11.5-15.5) % Plt Count (125-369) X10(3)uL MPV (7.4-10.4) fL Neut % (Auto) (46-82) % Lymph % (Auto) (13-37) % [place] % (Auto) (4-12) % Eos % (Auto) (1.0-5.0) % Baso % (Auto) (0-2) % Neut # (Auto) (1.6-8.3) # Lymph # (Auto) (0.6-5.0) # [place] # (Auto) (0.0-1.3) # Eos # (Auto) (0.0-0.8) # Baso # (Auto) (0.0-0.2) # PT (8.7-11.1) INR (0.89-1.13) Sodium (135-145) mmol/L Potassium (3.5-5.3) mmol/L Chloride (100-110) mmol/L Carbon Dioxide (21-32) mmol/L BUN (7-18) mg/dL Creatinine (0.55-1.02) mg/dL Est Cr Clr Drug Dosing Estimated GFR (MDRD) (>60) BUN/Creatinine Ratio (9-20) Glucose (80-116) mg/dL Calcium (8.6-10.2) mg/dL Total Bilirubin (0.1-1.3) mg/dL AST (5-25) IU/L ALT (12-36) U/L Alkaline Phosphatase (56-112) IU/L Total Protein (6.0-8.0) g/dL Albumin (3.5-5.2) g/dL Globulin g/dL Albumin/Globulin Ratio TSH, Ultra Sensitive 1.51 (0.36-3.74) IU/mL Urine Color (YELLOW) Urine Appearance (CLEAR) Urine pH (5.0-6.5) Ur Specific [place] (1.010-1.025) Urine Protein (NEGATIVE) mg/dL Urine Glucose (UA) (NEGATIVE) mg/dL Urine Ketones (NEGATIVE) mg/dL Urine Occult Blood (NEGATIVE) Urine Nitrite (NEGATIVE) Urine Bilirubin (NEGATIVE) Urine Urobilinogen (NEGATIVE) mg/dL Ur Leukocyte Esterase (NEGATIVE) Urine RBC (0) Urine WBC (0) Ur Squamous Epith Cells (NS,R,O) Urine Bacteria (NS) Urine HCG, Qual (NEGATIVE) Salicylates 1.3 L (2.8-20.0) mg/dL Urine Opiates Screen (NEGATIVE) Ur Oxycodone Screen (NEGATIVE) Ur Propoxyphene Screen (NEGATIVE) Acetaminophen 12 (10-30) ug/mL Ur Barbituates Screen (NEGATIVE) Ur Tricyclics Screen (NEGATIVE) Ur Phencyclidine Scrn (NEGATIVE) Ur Amphetamine Screen (NEGATIVE) Urine MDMA Screen (NEGATIVE) U Benzodiazepines Scrn (NEGATIVE) U Cocaine Metab Screen (NEGATIVE) U Marijuana (THC) Screen (NEGATIVE) Ethyl Alcohol < 0.03 (<0.03) % 04/28/18 04/28/18 04/28/18 Range/Units 20:20 20:30 20:30 WBC (4.5-12.0) X10-3/uL RBC (3.23-5.20) x10(6)uL Hgb (11.5-15.5) g/dL Hct (30.0-51.3) % MCV (80-96) fL MCH (27.7-33.6) pg MCHC (32.2-35.4) g/dL RDW (11.5-15.5) % Plt Count (125-369) X10(3)uL MPV (7.4-10.4) fL Neut % (Auto) (46-82) % Lymph % (Auto) (13-37) % [place] % (Auto) (4-12) % Eos % (Auto) (1.0-5.0) % Baso % (Auto) (0-2) % Neut # (Auto) (1.6-8.3) # Lymph # (Auto) (0.6-5.0) # [place] # (Auto) (0.0-1.3) # Eos # (Auto) (0.0-0.8) # Baso # (Auto) (0.0-0.2) # PT (8.7-11.1) INR (0.89-1.13) Sodium (135-145) mmol/L Potassium (3.5-5.3) mmol/L Chloride (100-110) mmol/L Carbon Dioxide (21-32) mmol/L BUN (7-18) mg/dL Creatinine (0.55-1.02) mg/dL Est Cr Clr Drug Dosing Estimated GFR (MDRD) (>60) BUN/Creatinine Ratio (9-20) Glucose (80-116) mg/dL Calcium (8.6-10.2) mg/dL Total Bilirubin (0.1-1.3) mg/dL AST (5-25) IU/L ALT (12-36) U/L Alkaline Phosphatase (56-112) IU/L Total Protein (6.0-8.0) g/dL Albumin (3.5-5.2) g/dL Globulin g/dL Albumin/Globulin Ratio TSH, Ultra Sensitive (0.36-3.74) IU/mL Urine Color Yellow (YELLOW) Urine Appearance Clear (CLEAR) Urine pH 7.0 H (5.0-6.5) Ur Specific [place] 1.005 L (1.010-1.025) Urine Protein Negative (NEGATIVE) mg/dL Urine Glucose (UA) Normal (NEGATIVE) mg/dL Urine Ketones Negative (NEGATIVE) mg/dL Urine Occult Blood Negative (NEGATIVE) Urine Nitrite Negative (NEGATIVE) Urine Bilirubin Negative (NEGATIVE) Urine Urobilinogen Normal (NEGATIVE) mg/dL Ur Leukocyte Esterase Negative (NEGATIVE) Urine RBC 0-5 (0) Urine WBC 0-5 (0) Ur Squamous Epith Cells Moderate H (NS,R,O) Urine Bacteria Few H (NS) Urine HCG, Qual Negative (NEGATIVE) Salicylates (2.8-20.0) mg/dL Urine Opiates Screen Negative (NEGATIVE) Ur Oxycodone Screen Negative (NEGATIVE) Ur Propoxyphene Screen Negative (NEGATIVE) Acetaminophen (10-30) ug/mL Ur Barbituates Screen Positive H (NEGATIVE) Ur Tricyclics Screen Negative (NEGATIVE) Ur Phencyclidine Scrn Negative (NEGATIVE) Ur Amphetamine Screen Negative (NEGATIVE) Urine MDMA Screen Negative (NEGATIVE) U Benzodiazepines Scrn Negative (NEGATIVE) U Cocaine Metab Screen Negative (NEGATIVE) U Marijuana (THC) Screen Negative (NEGATIVE) Ethyl Alcohol (<0.03) % Medications Generic Name Dose Route Start Last Admin Trade Name Freq PRN Reason Stop Dose Admin Sodium Chloride 1,000 mls @ 200 mls/hr 04/28/18 21:00 04/28/18 20:56 Normal Saline IV 200 mls/hr ASDIRECTED YARIEL Administration Acetylcysteine 10,200 mg/ 251 mls @ 251 mls/hr 04/28/18 22:00 Sodium Chloride IV 04/28/18 22:59 ONETIME ONE Sodium Chloride 10 ml 04/28/18 19:46 04/28/18 19:55 Saline Flush FLUSH 10 ml ASDIRECTED PRN Administration Keep Vein Open Discontinued Medications Generic Name Dose Route Start Last Admin Trade Name Freq PRN Reason Stop Dose Admin Acetylcysteine 10,200 mg 04/28/18 21:12 Acetadote 20% IV 04/28/18 21:13 ONETIME ONE Sodium Chloride 1,000 mls @ 999 mls/hr 04/28/18 19:46 04/28/18 20:00 Normal Saline IV 04/28/18 20:46 999 mls/hr .BOLUS ONE Administration Re-Assessment/Re-Exam: Symptoms unchanged. CXR: NAD CT Head: NAD Poison control consulted, Acetaminophen level of 12 is considered toxic, recommends 21 hour treatment of Acetylcysteine. Dr. Mehta accepts patient for transfer to [facility]. Re-Assessment/Re-Exam Date: 04/28/18 Re-Assessment/Re-Exam Time: 21:32 Departure - Departure Time of Disposition: 21:43 Disposition: DC/Tfer to Acute Hospital 02 Condition: Serious Clinical Impression: Acetaminophen toxicity Qualifiers: Encounter type: initial encounter Injury intent: intentional self-harm Qualified Code(s): T39.1X2A - Poisoning by 4-Aminophenol derivatives, intentional self-harm, initial encounter Suicide attempt by acetaminophen overdose Qualifiers: Encounter type: initial encounter Qualified Code(s): T39.1X2A - Poisoning by 4- Aminophenol derivatives, intentional self-harm, initial encounter - Discharge Information *PRESCRIPTION DRUG MONITORING PROGRAM REVIEWED*: No *COPY OF PRESCRIPTION DRUG MONITORING REPORT IN PATIENT LYUBOV: Not Applicable Referrals: Gifty Bowden ASSOCIATE MEDIA PLANNER [Primary Care Provider] - Forms: ED Department Discharge - My Orders Last 24 Hours: My Active Orders 04/28/18 19:44 EKG Documentation Completion [RC] ASDIRECTED Urinary Catheter Assessment [RC] QSHIFT Chest 1V Frontal [CR] Stat EKG 12 Lead [EK] Stat 04/28/18 19:45 Martinez Catheter Insertion [Insert Urinary Catheter] [OM.PC] Q24H Head wo Cont [CT] Stat 04/28/18 19:46 Sodium Chloride 0.9% [Saline Flush] 10 ml FLUSH ASDIRECTED PRN Saline Lock Insert [OM.PC] Routine 04/28/18 21:00 Sodium Chloride 0.9% [Normal Saline] 1,000 ml IV ASDIRECTED 04/28/18 22:00 Acetylcysteine [Acetadote 20%] 10,200 mg Sodium Chloride 0.45% 200 ml IV ONETIME - Assessment/Plan Last 24 Hours: My Active Orders 04/28/18 19:44 EKG Documentation Completion [RC] ASDIRECTED Urinary Catheter Assessment [RC] QSHIFT Chest 1V Frontal [CR] Stat EKG 12 Lead [EK] Stat 04/28/18 19:45 Martinez Catheter Insertion [Insert Urinary Catheter] [OM.PC] Q24H Head wo Cont [CT] Stat 04/28/18 19:46 Sodium Chloride 0.9% [Saline Flush] 10 ml FLUSH ASDIRECTED PRN Saline Lock Insert [OM.PC] Routine 04/28/18 21:00 Sodium Chloride 0.9% [Normal Saline] 1,000 ml IV ASDIRECTED 04/28/18 22:00 Acetylcysteine [Acetadote 20%] 10,200 mg Sodium Chloride 0.45% 200 ml IV ONETIME
[2018-04-28 20:51] VITALS: BP 174/93
[2018-04-28] MEDS ORDERED: Sodium Chloride 0.9% 1,000 ML IV SCH (21:00)
[2018-04-28] MEDS ORDERED: Acetylcysteine 20% 200 MG/ML 30 ML SDV IV ONE (21:12)
[2018-04-28] MEDS ORDERED: SODIUM CHLORIDE 0.45% IV ONE (22:00)
[2018-04-28] MEDS ORDERED: ACETYLCYSTEINE IV ONE (22:00)
--- NOTE | 2018-04-30 11:23 | CR ---
INDICATION: Overdose. CHEST, AP VIEW: FINDINGS: The lungs are clear. There is no CHF. There is no acute abnormality in the chest. This patient has had a previous gastric bypass. I believe there is a small hiatal hernia that is identified just above the GE junction. IMPRESSION: No acute abnormality is shown. No CHF or pneumonia. MTDD
== END 2018-04-28 22:40 ==
LOC: FB.ED 19:37
DX: T39.1X2A Poisoning by 4-Aminophenol derivatives, intentional self-harm, initial encounter (principal); Z79.899 Other long term (current) drug therapy
CPT/HCPCS: 36415; 51702; 70450; 71045; 80053; 80305; 81001; 81025; 84443; 85025; 85610; 93005; 96361; 96365; 99285; G0480; J0132; J7030; J7050

== ENCOUNTER 2021-09-26 01:27 | Emergency (ER) | payer OTHER ==
[2021-09-26 02:21] LABS: ACETAMINOPHEN < 2 ug/mL (<2)
[2021-09-26] MEDS ORDERED: Sodium Chloride 0.9% 10 ML Syringe FLUSH PRN (02:58)
[2021-09-26] MEDS ORDERED: Thiamine 100 MG in Sodium Chloride 0.9% 100 ML IV STA (02:58)
[2021-09-26] MEDS ORDERED: Sodium Chloride 0.9% 1,000 ML IV SCH ×3 (03:00→06:00)
[2021-09-26] MEDS ORDERED: DOPamine/Dextrose 5%-Water 400 MG/250 ML BAG IV SCH (04:30)
[2021-09-26] MEDS ORDERED: Norepinephrine 4 MG in Dextrose 5% in Water 246 ML IV SCH ×2 (04:45)
[2021-09-26 21:13] VITALS: BP 134/80; PULSE 77
== END 2021-09-26 16:00 | disposition home or self-care (01) ==
LOC: FB.ED 01:27
DX: F10.229 Alcohol dependence with intoxication, unspecified (principal); K21.9 Gastro-esophageal reflux disease without esophagitis; E03.9 Hypothyroidism, unspecified; Z79.899 Other long term (current) drug therapy; Z79.84 Long term (current) use of oral hypoglycemic drugs; Z72.0 Tobacco use; Y90.5 Blood alcohol level of 100-119 mg/100 ml
CPT/HCPCS: 36415; 80053; 80143; 80179; 80307; 85025; 96365; 96367; 99284-25; J3411; J7030; J7060

== ENCOUNTER 2025-03-05 02:26 | Emergency (ER) | payer BC, OTHER ==
[2025-03-05 02:59] LABS: BASOPHILS ABSOLUTE AUTO 0.1 x10-3/uL (0.0-0.1); BASOPHILS PERCENT AUTO 2.1 % (0.2-1.5); EOSINOPHILS ABSOLUTE AUTO 0.5 x10-3/uL (0.0-0.8); EOSINOPHILS PERCENT AUTO 8.3 % (0.6-8.1); LYMPHOCYTES ABSOLUTE AUTO 2.3 x10-3/uL (1.0-4.4); LYMPHOCYTES PERCENT AUTO 34.4 % (18.4-52.1); MEAN PLATELET VOLUME 7.6 fL (7.1-12.4); MONOCYTES ABSOLUTE AUTO 0.5 x10-3/uL (0.3-1.0); MONOCYTES PERCENT AUTO 7.9 % (4.4-15.7); NEUTROPHILS ABSOLUTE AUTO 3.1 x10-3/uL (1.5-6.3); NEUTROPHILS PERCENT AUTO 47.3 % (30.8-76.2); PLATELET COUNT,PLT 385 x10(3)uL (151-488); RED BLOOD CELL COUNT 4.56 x10(6)uL (3.60-5.20); RED CELL DISTRIBUTION WIDTH 16.2 % (12.3-16.5); WHITE BLOOD CELL COUNT,WBC 6.6 x10-3/uL (3.0-10.3)
[2025-03-05 03:07] LABS: BLOOD UREA NITROGEN,BUN 33 mg/dL (7-18); CARBON DIOXIDE,CO2 19 mmol/L (21-32); CHLORIDE,CL 106 mmol/L (100-110); CREATININE 1.6 mg/dL (0.55-1.02); ESTIMATED GFR 39 mL/min (>60); GLUCOSE RANDOM 113 mg/dL (80-116); POTASSIUM,K 3.4 mmol/L (3.5-5.3); SODIUM,NA 141 mmol/L (135-145)
[2025-03-05 03:13] LABS: A/G RATIO 1.4; ALANINE AMINOTRANSFERASE,ALT 22 U/L (12-36); ASPARTATE AMNIOTRANSFERASE,AST 25 IU/L (5-25); BILIRUBIN TOTAL 0.2 mg/dL (0.1-1.3); PROTEIN TOTAL,TP 6.9 g/dL (6.0-8.0)
[2025-03-05 03:45] LABS: GLUCOSE,URINE NORMAL (NORMAL); OCCULT BLOOD,URINE NEGATIVE (NEGATIVE)
[2025-03-05 03:52] LABS: AMPHETAMINES SCREEN, URINE NEGATIVE (NEGATIVE); BUPRENORPHINE SCREEN,URINE NEGATIVE (NEGATIVE); METHADONE SCREEN, URINE NEGATIVE (NEGATIVE); METHAMPHETAMINE SCREEN, URINE NEGATIVE (NEGATIVE); OXYCODONE SCREEN,URINE NEGATIVE (NEGATIVE)
[2025-03-05 04:14] LABS: APPEARANCE,URINE CLEAR (CLEAR); SQUAMOUS EPITHELIAL CELLS,UR FEW (NS,R,O)
[2025-03-05 04:14] LABS: BASE EXCESS VENOUS,POC -9 mmol/L (-2 - 3+); PCO2 VENOUS,POC 33 mmHg (41-51); PH VENOUS,POC 7.30 pH Units (7.32-7.43)
[2025-03-05] MEDS ORDERED: Sodium Chloride 0.9% 10 ML Syringe FLUSH PRN (06:20)
[2025-03-05] MEDS: Potassium Chloride 20 MEQ Tab.ER PO ONE ×2 (06:44→08:42)
[2025-03-05 09:16] LABS: BLOOD UREA NITROGEN,BUN 27 mg/dL (7-18); CARBON DIOXIDE,CO2 19 mmol/L (21-32); CHLORIDE,CL 108 mmol/L (100-110); CREATININE 1.0 mg/dL (0.55-1.02); ESTIMATED GFR 68 mL/min (>60); GLUCOSE RANDOM 85 mg/dL (80-116); POTASSIUM,K 3.6 mmol/L (3.5-5.3); SODIUM,NA 140 mmol/L (135-145)
[2025-03-05 09:17] LABS: BASE EXCESS VENOUS,POC -10 mmol/L (-2 - 3+); PCO2 VENOUS,POC 34 mmHg (41-51); PH VENOUS,POC 7.28 pH Units (7.32-7.43)
[2025-03-05 09:29] LABS: LACTIC ACID 2.5 mmol/L (0.4-2.0)
[2025-03-05 13:30] VITALS: BP 133/95; PULSE 61
[2025-03-07 00:46] LABS: THYROXINE FREE 1.2 ng/dL (0.9-1.7)
== END 2025-03-05 13:30 ==
LOC: FB.ED 02:26
DX: T46.5X2A Poisoning by other antihypertensive drugs, intentional self-harm, initial encounter (principal); E87.6 Hypokalemia; D53.9 Nutritional anemia, unspecified; N17.9 Acute kidney failure, unspecified; E03.9 Hypothyroidism, unspecified; F10.120 Alcohol abuse with intoxication, uncomplicated; Z79.890 Hormone replacement therapy; Z79.84 Long term (current) use of oral hypoglycemic drugs; Z90.49 Acquired absence of other specified parts of digestive tract; Z90.710 Acquired absence of both cervix and uterus
CPT/HCPCS: 36415; 80048; 80053; 80143; 80179; 80307; 81001; 81025; 82375; 83605; 84439; 84443; 84484; 85025; 93005; 93010; 96361; 96365; 96366; 99285; A9270; J3411; J7030